=== PATIENT | male | born 1995 | race Two or more races ===

== ENCOUNTER 2017-05-17 13:46 | Emergency (ER) | payer OTHER ==
[2017-05-17 14:49] VITALS: BP 139/77
== END 2017-05-17 14:35 | disposition home or self-care (01) ==
LOC: ED 13:46
DX: B34.9 Viral infection, unspecified (principal); R03.0 Elevated blood-pressure reading, without diagnosis of hypertension
CPT/HCPCS: J7613; J7644

== ENCOUNTER 2018-03-07 14:10 | Emergency (ER) | payer OTHER ==
[~2018-03-07] VITALS: Ht 170.2 cm; Wt 81.6 kg
[2018-03-07 14:34] VITALS: Ht 170.2 cm; Wt 81.6 kg
[2018-03-07 15:38] VITALS: BP 139/81
== END 2018-03-07 15:38 | disposition home or self-care (01) ==
LOC: ED 14:10
DX: H66.93 Otitis media, unspecified, bilateral (principal)

== ENCOUNTER 2018-09-13 11:57 | Emergency (ER) | payer OTHER ==
[~2018-09-13] VITALS: Ht 172.7 cm; Wt 97.1 kg
[2018-09-13 12:04] VITALS: BP 162/98; Ht 172.7 cm; Wt 97.1 kg
== END 2018-09-13 15:04 | disposition home or self-care (01) ==
LOC: ED 11:57
DX: J02.0 Streptococcal pharyngitis (principal)

== ENCOUNTER 2018-12-24 20:14 | Emergency (ER) | payer OTHER ==
[~2018-12-24] VITALS: Ht 172.7 cm; Wt 95.7 kg
[2018-12-24 20:22] VITALS: Ht 172.7 cm; Wt 95.7 kg
[2018-12-24 21:50] VITALS: BP 133/83
== END 2018-12-24 21:50 | disposition home or self-care (01) ==
LOC: ED 20:14
DX: J06.9 Acute upper respiratory infection, unspecified (principal)